=== PATIENT | female | born 1935 | race Caucasian/White ===

== ENCOUNTER → 2020-07-15 | Outpatient (CLI) | payer OTHER ==
[~2020-07-15] MED LIST: ASPI-889 PO; AZIT250T PO; CEFD300C PO; GLIM4TAB8 PO; IOHEXOL 350 MG/ML 100 ML VIAL. IV ONE; LABE100T5 PO; LOSA25TA11 PO; PIOG15TA42 PO
--- NOTE | 2020-07-15 16:23 | RAD ---
EXAM: CT angiogram of the head with intravenous contrast. HISTORY: Stroke. TECHNIQUE: Computed tomographic images of the head were obtained following the administration of cont rast. Three-dimensional images were obtained. *One or more of the following individualized dose reduction techniques were utilized for this examina tion: 1. Automated exposure control. 2. Adjustment of the mA and/or kV according to patient size. 3. Use of iterative reconstruction technique. COMPARISON: CT dated 06/27/2020. 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 There is no residual filling of the aneurysm sac in this location. Th ere is partially calcified atherosclerotic plaque involving the supraclinoid left internal carotid ar lupe, resulting in greater than 70 percent stenosis. There is also atherosclerosis involving the dist al right internal carotid artery with less than 50 percent stenosis. The posterior commuting indicati ng arteries are likely hypoplastic or developmentally absent. The anterior commuting indicating arter y is patent. The anterior, middle and posterior cerebral arteries are patent. The left vertebral arian ry slightly dominant. There is partially calcified atherosclerotic plaque involving the left carotid bulb and proximal right internal carotid artery, with less than 50 percent stenosis. The distal inter nal carotid arteries are tortuous. There is no mass effect or midline shift. There is no hydrocephalus. There is cerebral volume loss. T here is decreased attenuation within the cerebral white matter due to chronic small vessel disease. T here is encephalization due to chronic infarction involving the right frontoparietal junction, bilate ral basal ganglia and thalami and left cerebellum. There is evidence of lens surgery. The paranasal s inuses are unremarkable. There is fluid within the right mastoid air cells. There is degenerative zi nge involving the cervical spine, resulting in mild right and moderate to severe left foraminal steno sis at C3-C4 and severe right greater than left foraminal and moderate central canal stenosis at C5-C 6. IMPRESSION: 1. 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 No filling of a residual ane urysm sac is seen. 2. Moderate atherosclerosis involving the distal left ICA, resulting in greater than 70 percent steno sis. There is additional atherosclerosis involving the distal right ICA and carotid bifurcations with less than 50 percent stenosis. 3. 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 4. Cerebral white matter changes, likely due to chronic small vessel disease. 5. Cerebral atrophy. PQRS Compliance Statement - Stenosis calculations for CT, MR and conventional angiography are based u leo measurement of the distal ICA diameter in accordance with the NASCET methodology. Stenosis calcu lations for carotid ultrasound studies are derived from validated velocity criteria which are known t o correlate with the NASCET methodology. Electronically signed by: Colette Lewis MD (07/15/2020 4:21 PM) [id number]
== END ==
LOC: CT 13:35
PROVIDERS: ATTEND Family Medicine
DX: I67.1 Cerebral aneurysm, nonruptured (principal); I51.7 Cardiomegaly
CPT/HCPCS: 70496; Q9967